=== PATIENT | female | born 1990 | race Two or more races ===

== ENCOUNTER 2018-02-01 09:49 | Outpatient (CLI) | payer OTHER ==
[~2018-02-01 09:49] MED LIST: GADOBUTROL 7.5 MMOL/7.5 ML SYRINGE ONE
[2018-02-01] MEDS ORDERED: GADOBUTROL 7.5 MMOL/7.5 ML SYRINGE IVP ONE (10:30)
--- NOTE | 2018-02-01 16:19 | MRI Report ---
EXAM: MRI BRAIN WITHOUT AND WITH CONTRAST EXAM DATE: 02/01/2018 10:55 AM. CLINICAL HISTORY: PROGRESSIVE R EAR TINNITUS. COMPARISON: None. TECHNIQUE: Multiplanar, multisequence T1-weighted and fluid-sensitive MR sequences of the brain were performed. Sequences optimized for routine evaluation. Other: None. IV Contrast: 7 mL Gadavist. FINDINGS: The diffusion-weighted images are normal. There is no evidence of acute or subacute cerebral infarcti on. The pituitary and sella are normal. The craniocervical junction is normal. The corpus callosum is of normal size and configuration. The T2 axial FLAIR images are normal. There is a normal appearance of the nerve exit zone, cisternal and internal auditory canal segments o f the bilateral 7th and 8th cranial nerves. There is a normal appearance of the nerve exit zone and cisternal segments of the bilateral trigemina l nerve and Meckel's cave. There is no enhancing cerebellopontine angle mass or internal auditory canal mass. There is normal enhancement within the deep venous sinuses. There is normal enhancement within the br ain parenchyma. Impression: 1. There is no evidence of acute or subacute cerebral infarction. 2. There is a normal appearance of the course of the bilateral fifth, seventh, and eighth cranial ner ves. There is no cerebellopontine angle mass or internal auditory canal mass or evidence of superior semicircular canal dehiscence. Referring Provider Line: [phone] SITE ID: [id number]
== END 2018-02-01 09:50 | disposition home or self-care (01) ==
LOC: DI 09:49
PROVIDERS: ATTEND Otolaryngology Facial Plastic Surgery
DX: H93.11 Tinnitus, right ear (principal)
CPT/HCPCS: 70553; A9585

== ENCOUNTER 2018-05-23 22:48 | Emergency (ER) | payer OTHER ==
[2018-05-23 23:31] LABS: BILIRUBIN,URINE NEGATIVE (NEGATIVE); GLUCOSE, URINE (UA) NEGATIVE (NEGATIVE); KETONES,URINE (UA) NEGATIVE (NEGATIVE); LEUKOCYTE ESTERASE, URINE SMALL (NEGATIVE); NITRITE,URINE NEGATIVE (NEGATIVE); OCCULT BLOOD,URINE SMALL (NEGATIVE); PROTEIN,URINE NEGATIVE (NEGATIVE); UROBILINOGEN,URINE 0.2 (NORMAL) E.U./dL (NORMAL)
[2018-05-23 23:33] LABS: CLARITY,URINE CLEAR (CLEAR); HCG UR QUAL NEGATIVE
[2018-05-23 23:38] LABS: BACTERIA,URINE Few /HPF (None Seen); RBC,URINE 0-5 /HPF (0-5); SQUAMOUS EPITHELIAL CELL,UR MOD Squamous (<= Few)
--- NOTE | 2018-05-23 23:53 | ED Physician Documentation ---
History of Present Illness - Stated complaint Stated Complaint: NAUSE/VOMITING - Chief complaint Chief Complaint: Abd Pain - History obtained from History obtained from: Patient - History of Present Illness Timing: Other (see below (various timeframes)) Improved by: nothing Worsened by: no apparent exacerbating factors - Additonal information Additional information: c/o metallic taste in mouth x 2-3 weeks, nausea without vomiting x 2-3 days. also noticed right breast lump today that is mildly tender. Review of Systems Constitutional: reports: Reviewed and negative Cardiac: reports: Reviewed and negative Respiratory: reports: Reviewed and negative GI: reports: Nausea. denies: Abdominal Pain, Vomiting : denies: Now EGA PD PAST MEDICAL HISTORY - Past Medical History Past Medical History: Yes Cardiovascular: High cholesterol - Past Surgical History Past Surgical History: Yes General: Cholecystectomy - Present Medications Home Medications: Ambulatory Orders Medication Instructions Recorded Confirmed Esomeprazole Magnesium [Nexium] 40 mg PO DAILY #14 capsule. 05/24/18 Ondansetron Odt [Zofran] 4 mg TL Q6H PRN #14 tablet 05/24/18 - Allergies Allergies/Adverse Reactions: Allergies Allergy/AdvReac Type Severity Reaction Status Date / Time No Known Drug Allergies Allergy Verified 05/23/18 23:02 - Social History Does the pt smoke?: No Smoking Status: Never smoker Does the pt drink ETOH?: No Does the pt have substance abuse?: No - Immunizations Immunizations are current?: No Immunizations: TDAP >10years/unknown PD ED PE NORMAL - Vitals Vital signs reviewed: Yes - General General: Alert and oriented X 3, No acute distress, Well developed/nourished - Cardiac Cardiac: RRR, No murmur - Respiratory Respiratory: No respiratory distress, Clear bilaterally - Abdomen Abdomen: Soft, Non tender - Derm Derm: Normal color, Warm and dry, No rash PD ED PE EXPANDED - Free text exam Free text exam: small (approximately 1-2cm diameter) rubbery nodular mass right breast superior and lateral to areola that is minimally tender and without fluctuance or erythema. it is 2-3 cm from areola (not adjacent). Results - Vitals Vitals: Oxygen O2 Source Room air - Labs Labs: Laboratory Tests 05/23/18 23:17 Urine Color YELLOW Urine Clarity CLEAR Urine pH 7.0 Ur Specific [place] 1.015 Urine Protein NEGATIVE Urine Glucose (UA) NEGATIVE Urine Ketones NEGATIVE Urine Occult Blood SMALL H Urine Nitrite NEGATIVE Urine Bilirubin NEGATIVE Urine Urobilinogen 0.2 (NORMAL) Ur Leukocyte Esterase SMALL H Urine RBC 0-5 Urine WBC 4-5 Ur Squamous Epith Cells MOD Squamous H Urine Bacteria Few Ur Microscopic Review INDICATED Urine Culture Comments NOT INDICATED Urine HCG, Qual NEGATIVE PD MEDICAL DECISION MAKING - ED course Complexity details: considered differential, d/w patient ED course: emergent testing not indicated at this time. patient is worried about the breast mass due to family h/o breast CA. I explained that this is unlikely to be the cause of the mass, but that she needs to follow up with her doctor to discuss whether testing in the outpatient setting is indicated. given zofran and protonix for her other symptoms - Sepsis Event Vital Signs: Oxygen O2 Source Room air Departure - Departure Disposition: 01 Home, Self Care Clinical Impression: Breast mass, right Gastroesophageal reflux disease Qualifiers: Esophagitis presence: esophagitis presence not specified Qualified Code(s): K21.9 - Gastro-esophageal reflux disease without esophagitis Condition: Good Instructions: ED Breast Mass Uncertain Cause, ED GERD Follow-Up: SUJATHA CASTILLO DO [Primary Care Provider] - Within 1 week Prescriptions: Esomeprazole Magnesium [Nexium] 40 mg PO DAILY #14 capsule. Ondansetron Odt [Zofran] 4 mg TL Q6H PRN #14 tablet PRN Reason: Nausea / Vomiting Discharge Date/Time: 05/24/18 00:51
[2018-05-24] MEDS ORDERED: ONDANSETRON ODT 4 MG TABLET TL STA (00:09)
[2018-05-24] MEDS ORDERED: PANTOPRAZOLE 40 MG TABLET PO STA (00:09)
[2018-05-24] MEDS ORDERED: ONDANSETRON ODT 4 MG Prepack 2 TL STA (00:38)
[2018-05-24 00:52] VITALS: BP 126/78
== END 2018-05-24 00:51 | disposition home or self-care (01) ==
LOC: ED 22:48
DX: K21.9 Gastro-esophageal reflux disease without esophagitis (principal); N63.10 Unspecified lump in the right breast, unspecified quadrant
CPT/HCPCS: 81001; 81025; 99283; A9270; Q0162; 81003; 87086

== ENCOUNTER 2018-10-28 21:48 | Emergency (ER) | payer OTHER ==
[2018-10-28 22:00] VITALS: BP 124/71
--- NOTE | 2018-10-28 22:05 | ED Physician Documentation ---
PD HPI NVD - Stated complaint Stated Complaint: N/V/D/ABD [id number]/[id number] PREG - Chief complaint Chief Complaint: Abd Pain - History obtained from History obtained from: Patient, Family - History of Present Illness Timing - onset: Yesterday Timing - duration: Days (2) Timing - details: Gradual onset Pain level max: 4 Pain level now: 3 Associated symptoms: Abdominal pain (crampy, feels like prior contractions). No: Fever, Near syncope / syncope, Loss of appetite, Vaginal bleeding, Vaginal dc Contributing factors: Sick contact. No: Recent antibiotics Improved by: Vomiting Worsened by: Eating - Additonal information Additional information: 2 para 1. 26 weeks . States that her abdominal pain feels similar to prior contractions. No vaginal bleeding. No leakage of fluid. Has had vomiting diarrhea as well. Review of Systems Ten Systems: 10 systems reviewed and negative Constitutional: denies: Fever, Chills Nose: denies: Rhinorrhea / runny nose, Congestion Throat: denies: Sore throat Cardiac: denies: Chest pain / pressure Respiratory: denies: Cough GI: reports: Vomiting, Diarrhea : denies: Dysuria, Frequency, Hesitancy Skin: denies: Rash Musculoskeletal: denies: Neck pain, Back pain Neurologic: denies: Headache PD PAST MEDICAL HISTORY - Past Medical History Cardiovascular: High cholesterol - Past Surgical History Past Surgical History: Yes General: Cholecystectomy - Present Medications Home Medications: Ambulatory Orders Medication Instructions Recorded Confirmed Esomeprazole Magnesium [Nexium] 40 mg PO DAILY #14 capsule. 05/24/18 Ondansetron Odt [Zofran] 4 mg TL Q6H PRN #14 tablet 05/24/18 - Allergies Allergies/Adverse Reactions: Allergies Allergy/AdvReac Type Severity Reaction Status Date / Time No Known Drug Allergies Allergy Verified 05/23/18 23:02 - Social History Does the pt smoke?: No Smoking Status: Never smoker Does the pt drink ETOH?: No Does the pt have substance abuse?: No - Immunizations Immunizations are current?: No Immunizations: TDAP >10years/unknown PD ED PE NORMAL - Vitals Vital signs reviewed: Yes - General General: Alert and oriented X 3, No acute distress, Well developed/nourished - HEENT HEENT: PERRL, Moist mucous membranes - Neck Neck: Supple, no meningeal sign - Cardiac Cardiac: RRR, Strong equal pulses - Respiratory Respiratory: No respiratory distress, Clear bilaterally - Abdomen Abdomen: Soft, Non tender, Other (gravid) - Back Back: No spinal TTP - Derm Derm: Warm and dry - Extremities Extremities: No edema, No calf tenderness / cord - Neuro Neuro: Alert and oriented X 3 - Psych Psych: Normal mood, Normal affect Results - Vitals Vitals: Vital Signs - 24 hr 10/28/18 21:55 Temperature 36.0 C L Heart Rate 105 H Respiratory 18 Rate Blood Pressure 124/71 O2 Saturation 100 Oxygen O2 Source Room air PD MEDICAL DECISION MAKING - ED course Complexity details: considered differential, d/w patient, d/w building energy consultant ED course: 28-year-old female, 2 para 1 who presents to the emergency department with abdominal pain similar to prior contractions. She also has vomiting diarrhea, possible this would be gastroenteritis, will send OB for rule out labor first and further care. Discussed the case with OB on-call, Dr. Alcocer. Patient wheeled directly to OB. This document was made in part using voice recognition software. While efforts are made to proofread this document, sound alike and grammatical errors may occur. Departure - Departure Disposition: 01 Home, Self Care Clinical Impression: Abdominal pain affecting Vomiting Qualifiers: Vomiting type: unspecified Vomiting Intractability: non-intractable Nausea presence: with nausea Qualified Code(s): R11.2 - Nausea with vomiting, unspecified Diarrhea Qualifiers: Diarrhea type: unspecified type Qualified Code(s): R19.7 - Diarrhea, unspecified Condition: Stable
== END 2018-10-28 22:08 | disposition home or self-care (01) ==
LOC: ED 21:48
DX: O99.613 Diseases of the digestive system complicating pregnancy, third trimester (principal); K52.9 Noninfective gastroenteritis and colitis, unspecified; Z3A.26 26 weeks gestation of pregnancy
CPT/HCPCS: 80053; 81001; 82150; 83690; 85025; 96365; 99283; J7040; J7120; 99214; 99282

== ENCOUNTER 2018-10-28 22:24 | Outpatient (CLI) | payer OTHER ==
[2018-10-28] MEDS ORDERED: LACTATED RINGERS 1,000 ML IV ONE ×2 (22:47→22:54)
[2018-10-28] MEDS ORDERED: PROMETHAZINE INJ 12.5 MG in SODIUM CHLORIDE 0.9% 50 ML IV SCH (23:00)
[2018-10-28 23:39] LABS: BASOPHILS % (AUTO) 0.1 %; EOSINOPHILS % (AUTO) 0.1 %; HGB - HEMOGLOBIN 11.7 g/dL (12.0-16.0); LYMPHOCYTES # (AUTO) 0.9 10^3/uL (1.5-3.5); LYMPHOCYTES % (AUTO) 8.9 %; MEAN CORPUSCULAR HEMOGLOBIN 28.2 pg (27.0-31.0); MEAN CORPUSCULAR VOLUME 83.1 fL (81.0-99.0); MEAN PLATELET VOLUME 6.5 fL (7.9-10.8); MONOCYTES # (AUTO) 0.7 10^3/uL (0.0-1.0); MONOCYTES % (AUTO) 6.9 %; NEUTROPHILS # (AUTO) 8.2 10^3/uL (1.5-6.6); PLT - PLATELET COUNT 287 10^3/uL (130-450); RED BLOOD COUNT 4.14 10^6/uL (4.20-5.40); RED CELL DISTRIBUTION WIDTH 14.7 % (12.0-15.0); WHITE BLOOD COUNT 9.7 x10^3/uL (4.8-10.8)
[2018-10-28 23:46] LABS: BILIRUBIN,URINE NEGATIVE (NEGATIVE); GLUCOSE, URINE (UA) NEGATIVE (NEGATIVE); KETONES,URINE (UA) 15 mg/dL (NEGATIVE); LEUKOCYTE ESTERASE, URINE NEGATIVE (NEGATIVE); NITRITE,URINE NEGATIVE (NEGATIVE); OCCULT BLOOD,URINE TRACE-LYSE (NEGATIVE); PH,URINE 6.5 PH (5.0-7.5); PROTEIN,URINE NEGATIVE (NEGATIVE); UROBILINOGEN,URINE 0.2 (NORMAL) E.U./dL (NORMAL)
[2018-10-28 23:47] LABS: CLARITY,URINE CLEAR (CLEAR)
[2018-10-28 23:47] LABS: ALBUMIN 3.4 g/dL (3.2-5.5); ALBUMIN/GLOBULIN RATIO 0.9 (1.0-2.2); BILIRUBIN,TOTAL 0.6 mg/dL (0.2-1.0); CREATININE 0.4 mg/dL (0.4-1.0)
[2018-10-28 23:55] LABS: BACTERIA,URINE None Seen /HPF (None Seen); RBC,URINE 0-5 /HPF (0-5); SQUAMOUS EPITHELIAL CELL,UR MANY Squamous (<= Few)
[2018-10-29] MEDS ORDERED: LACTATED RINGERS 1,000 ML IV ONE (01:00)
[2018-10-29 02:29] VITALS: BP 110/68
== END 2018-10-29 02:15 | disposition home or self-care (01) ==
LOC: WFO 22:24 → FBP 22:25 → WFO 10-29 02:15
PROVIDERS: ATTEND Obstetrics & Gynecology
DX: O99.613 Diseases of the digestive system complicating pregnancy, third trimester (principal); K52.9 Noninfective gastroenteritis and colitis, unspecified; Z3A.25 25 weeks gestation of pregnancy
CPT/HCPCS: 80053; 81001; 82150; 83690; 85025; 87086; 99214

== ENCOUNTER 2019-08-28 21:43 | Emergency (ER) | payer OTHER ==
[2019-08-29] VITALS: BP 145/87
--- NOTE | 2019-08-29 00:09 | ED Physician Documentation ---
History of Present Illness - Stated complaint Stated Complaint: HIGH BP, NAUSEA - Chief complaint Chief Complaint: General - History obtained from History obtained from: Patient - History of Present Illness Timing: Yesterday Improved by: nothing Worsened by: no exacerbating factors - Additonal information Additional information: multiple c/o. patient's chief concern is "I've been having higher blood pressures than normal"; she has been measuring her blood pressures over past 1-2 days, results 140s-150s/90s-100s. She also c/o episodic palpitations without exacerbating factors. Also c/o nausea since earlier today with emesis x 2. c/o difficulty sleeping and decreased appetite x few days Review of Systems Constitutional: denies: Fever, Chills, Sweats Cardiac: reports: Palpitations. denies: Chest pain / pressure, Pedal edema, Calf pain Respiratory: denies: Dyspnea GI: reports: Nausea, Vomiting. denies: Abdominal Pain : denies: Dysuria, Frequency, Now EGA Neurologic: denies: Focal weakness, Numbness, Headache PD PAST MEDICAL HISTORY - Past Medical History Past Medical History: Yes Cardiovascular: High cholesterol - Past Surgical History Past Surgical History: Yes General: Cholecystectomy - Present Medications Home Medications: Ambulatory Orders Medication Instructions Recorded Confirmed Esomeprazole Magnesium [Nexium] 40 mg PO DAILY #14 capsule. 05/24/18 Ondansetron Odt [Zofran] 4 mg TL Q6H PRN #14 tablet 05/24/18 - Allergies Allergies/Adverse Reactions: Allergies Allergy/AdvReac Type Severity Reaction Status Date / Time No Known Drug Allergies Allergy Verified 05/23/18 23:02 - Social History Does the pt smoke?: No Smoking Status: Never smoker Does the pt drink ETOH?: No Does the pt have substance abuse?: No - Immunizations Immunizations are current?: No Immunizations: TDAP >10years/unknown - POLST Patient has POLST: No PD ED PE NORMAL - Vitals Vital signs reviewed: Yes - General General: Alert and oriented X 3, No acute distress, Well developed/nourished - HEENT HEENT: Moist mucous membranes - Cardiac Cardiac: RRR, No murmur, No gallop, No rub - Respiratory Respiratory: No respiratory distress, Clear bilaterally - Abdomen Abdomen: Normal bowel sounds, Soft, Non tender, Non distended Results - Vitals Vitals: Oxygen O2 Source Room air PD MEDICAL DECISION MAKING - ED course Complexity details: reviewed results, re-evaluated patient, considered di fferential, d/w patient ED course: NAD despite multiple c/o. I offered antinauseant, which she declines. Discussed her high blood pressure and I instructed her to f/u with PMD regarding this; I explained to her that her blood pressures are elevated but mild elevations and thus she should continue to monitor her BP and then f/u with PMD to discuss whether antihypertensive medication is indicated and, if so, discuss options and potential side effects. Given her nonspecific symptoms (reduced appetite, occasional palpitations which sound like "skipped beat" palpitations rather than sustained rapid or irregular palpitations), I offered to perform basic blood work (CBC, BMP), but she declines at this time, will return if worse, and will f/u with PMD Departure - Departure Disposition: 01 Home, Self Care Clinical Impression: Hypertension Qualifiers: Hypertension type: unspecified Qualified Code(s): I10 - Essential (primary) hypertension Condition: Good Instructions: ED Hypertension Poss Follow-Up: SUJATHA CASTILLO DO [Primary Care Provider] - Within 1 week Discharge Date/Time: 08/29/19 00:45
== END 2019-08-29 00:45 | disposition home or self-care (01) ==
LOC: ED 21:43
DX: I10 Essential (primary) hypertension (principal)
CPT/HCPCS: 99282; 99283